=== PATIENT | male | born 1980 | race Caucasian/White ===

== ENCOUNTER 2017-06-04 10:32 | Emergency (ER) | payer MEDICAID ==
[~2017-06-04] VITALS: Ht 172.7 cm; Wt 102.1 kg
--- NOTE | 2017-06-04 10:32 | NUR ---
CP X 2 DAYS WATER SPONGER, NON RADIATING AND NON TRAUMATIC. NAD NOTED. PT AAO X4, AMB WITH STEADY GAIT. RR EVEN AND UNLABORED. PLACED IN GOWN AND MONITOR. PENDING MD MCCALL.
[2017-06-04] MEDS ORDERED: ASPIRIN 325 MG TABLET ONE (10:55)
[2017-06-04] MEDS ORDERED: ASPIRIN 325 MG TABLET PO ONE (11:00)
[2017-06-04 11:01] LABS: BASOPHILS # (AUTO) 0.1 /CMM (0.0-0.2); BASOPHILS % (AUTO) 1.8 % (0.0-2.0); EOSINOPHILS # (AUTO) 0.2 /CMM (0.0-0.7); HEMATOCRIT 47 % (39-51); HEMOGLOBIN 15.9 g/dL (13.5-17.5); LYMPHOCYTES # (AUTO) 2.8 /CMM (0.8-4.8); MEAN CORPUSCULAR HEMOGLOBIN 32 PG (26.0-33.0); MEAN CORPUSCULAR HGB CONC 34 g/dl (31.0-36.0); MEAN CORPUSCULAR VOLUME 93 fL (80-96); MONOCYTES # (AUTO) 0.5 /CMM (0.1-1.30); MONOCYTES % (AUTO) 6.5 % (2.0-12.0); NEUTROPHILS # (AUTO) 4.7 /CMM (1.8-8.9); NEUTROPHILS % (AUTO) 54.7 % (43.0-81.0); PLATELET COUNT (AUTO) 237 /CMM (150-450); RDW COEFFICIENT OF VARIATION 12.2 (11.5-15.0); RED BLOOD CELL COUNT(AUTO) 5.04 MIL/uL (4.5-6.0); WHITE BLOOD COUNT (AUTO) 8.3 K/uL (4.3-11.0)
[2017-06-04 11:16] LABS: CALCIUM, SERUM 8.5 mg/dL (8.5-10.1); CARBON DIOXIDE 27 mmol/L (21-32); CHLORIDE 105 mmol/L (98-107); CREATININE 1.1 mg/dL (0.6-1.3); GLUCOSE 99 mg/dL (74-106); POTASSIUM 4.1 mmol/L (3.5-5.1); SODIUM SERUM 138 mmol/L (136-145); UREA NITROGEN, BLOOD 19 mg/dL (7-18)
[2017-06-04 11:21] LABS: INR 0.9 (0.87-1.13); PROTHROMBIN TIME 9.4 SECS (9.5-12.7)
[2017-06-04 11:25] LABS: TROPONIN I < 0.017 ng/mL (0.00-0.056)
[2017-06-04 11:31] VITALS: BP 130/70
--- NOTE | 2017-06-04 11:37 | NUR ---
DR MARCELINO AT BEDSIDE FOR ACI
--- NOTE | 2017-06-04 11:39 | NUR ---
IV removed. Catheter intact and site benign. Pressure and 4x4 applied to site. No bleeding noted.Patient discharged to home in stable condition. Written and verbal after care instructions given. Patient verbalizes understanding of instruction.
== END 2017-06-04 11:41 | disposition home or self-care (01) ==
LOC: ER 10:36
DX: R07.89 Other chest pain (principal); F17.200 Nicotine dependence, unspecified, uncomplicated
CPT/HCPCS: 36415; 71010; 80048; 84484; 85025; 85730; 93005; 99285; A4606; Z7610

== ENCOUNTER 2021-12-29 21:09 | Emergency (ER) | payer MEDICAID, OTHER ==
[~2021-12-29] VITALS: Ht 177.8 cm; Wt 127.0 kg
[2021-12-29 21:31] VITALS: BP 165/100
--- NOTE | 2021-12-29 21:34 | NUR ---
BIBS C/O LOWER BACK PAIN X4DAYS IBUPROFEN TAKEN UI DEVELOPER. PATIENT ALERT AND ORIENTED X3. AMBULATORY WITH NON LABORED BREATHING. PATIENT PLACED IN BED 09 ON MONITOR AWAITING MD MCCALL.
[2021-12-29] MEDS ORDERED: CYCLOBENZAPRINE 10 MG TABLET ONE (22:48)
[2021-12-29] MEDS ORDERED: KETOROLAC TROMETHAMINE INJ 30 MG/ML VIAL ONE (22:48)
[2021-12-29] MEDS ORDERED: CYCLOBENZAPRINE 10 MG TABLET PO ONE (23:00)
[2021-12-29] MEDS ORDERED: KETOROLAC TROMETHAMINE INJ 60 MG/2 ML VIAL IM ONE (23:00)
[2021-12-29] MEDS ORDERED: LIDOCAINE 5% (PATCH) 1 EA PATCH TP SCH ×2 (23:00)
[2021-12-29] MEDS ORDERED: CYCL5TAB PO (23:07)
[2021-12-29] MEDS ORDERED: NAPR-1192 PO (23:07)
[2021-12-29] MEDS ORDERED: LIDO700A30 TP (23:07)
== END 2021-12-29 23:33 | disposition home or self-care (01) ==
LOC: ER 21:32
DX: S39.012A Strain of muscle, fascia and tendon of lower back, initial encounter (principal); I10 Essential (primary) hypertension; F17.210 Nicotine dependence, cigarettes, uncomplicated; Z79.899 Other long term (current) drug therapy; X58.XXXA Exposure to other specified factors, initial encounter; Y93.89 Activity, other specified; Y92.89 Other specified places as the place of occurrence of the external cause; Y99.8 Other external cause status
CPT/HCPCS: 96372; 99283; 99406; J1885